=== PATIENT | male | born 1940 | race Caucasian/White ===

== ENCOUNTER 2024-09-15 08:05 | Day surgery (SDC) | payer MEDICARE, BC ==
[2024-09-08 15:24] LABS: BASOPHILS # (AUTO) 0.1 X10'3 (0-0.2); BASOPHILS % (AUTO) 0.6 % (0-1); EOSINOPHILS # (AUTO) 0.2 X10'3 (0-0.9); EOSINOPHILS % (AUTO) 2.6 % (0-6); HEMATOCRIT 44.7 % (42.0-52.0); HEMOGLOBIN 14.8 g/dl (14.0-17.9); LYMPHOCYTES # (AUTO) 1.7 X10'3 (1.1-4.8); LYMPHOCYTES % (AUTO) 18.9 % (21-51); MEAN CORPUSCULAR HGB CONC 33.1 g/dL (33.0-36.5); MEAN CORPUSCULAR VOLUME 81.3 FL (78-98); MEAN PLATELET VOLUME 9.3 FL (7.4-10.4); MONOCYTES # (AUTO) 0.9 X10'3 (0-0.9); MONOCYTES % (AUTO) 9.5 % (2-12); NEUTROPHILS # (AUTO) 6.2 X10'3 (1.8-7.7); NEUTROPHILS % (AUTO) 68.4 % (42-75); PLATELET COUNT 238 X10'3 (140-440); RED BLOOD COUNT 5.49 X10'6 (4.70-6.10); RED CELL DISTRIBUTION WIDTH 15.8 % (11.5-14.5); WHITE BLOOD COUNT 9.1 X10'3 (4.5-11.0)
[2024-09-08 15:38] LABS: ALANINE AMINOTRANSFERASE 18 U/L (12-78); ALBUMIN 3.4 G/DL (3.4-5.0); ALKALINE PHOSPHATASE 50 IU/L (46-116); ANION GAP 6 (8-16); ASPARTATE AMINO TRANSFERASE 21 U/L (10-37); BILIRUBIN,TOTAL 0.9 MG/DL (0.1-1.0); BLOOD UREA NITROGEN 14 MG/DL (7-18); BUN/CREATININE RATIO 9.7 (10.0-20.0); CALCIUM 8.5 MG/DL (8.5-10.1); CHLORIDE 108 MMOL/L (99-107); CREATININE 1.44 MG/DL (0.60-1.10); GLUCOSE 121 MG/DL (70-104); POTASSIUM 4.1 MMOL/L (3.5-5.1); SODIUM 143 MMOL/L (135-145); TOTAL CARBON DIOXIDE 29.3 MMOL/L (24-32); TOTAL PROTEIN 6.8 G/DL (6.4-8.2); eGFR 47 ML/MIN
[~2024-09-15] VITALS: Ht 190.5 cm; Wt 95.3 kg
[2024-09-15] VITALS (13 sets, daily range): BP systolic 133–162; BP diastolic 77–93; PULSE 52–60; RESP 9–16; TEMP 97.1; O2SAT 96–100
[2024-09-15] MEDS: ceFAZolin 2gm in dextrose, iso 50 ML IV ONE (05:30)
[~2024-09-15 08:05] MED LIST: ATOR-2 PO; EZET10TA48 PO; FENO134C21 PO; FLO0.4C PO; LEVO50TA PO
[2024-09-15] MEDS: CefTRIAXone 2gm/D5W 50ml BAG 50 ML IV ONE (09:01)
[2024-09-15] MEDS: famotidine 20mg tablet PO ONE (09:01)
[2024-09-15] MEDS: ringers solution, lacted 1,000 ML IV SCH (09:01)
[2024-09-15] MEDS ORDERED: sevoflurane 250ml liquid IH ONE (09:50)
[2024-09-15] MEDS ORDERED: fentaNYL/PF 50MCG/1 ML 2ML syringe ONE (10:00)
[2024-09-15] MEDS ORDERED: midazolam 1 mg/ML 2ml injection ONE (10:08)
[2024-09-15] MEDS ORDERED: ondansetron/PF 4mg/2ml inj ONE (10:14)
[2024-09-15] MEDS ORDERED: LIDOcaine 2% (20mg/ml) 5ml vial ONE (10:14)
[2024-09-15] MEDS ORDERED: dexamethasone sod phosphate 4mg/ml inj. ONE (10:14)
[2024-09-15] MEDS ORDERED: propofol inj 20 ML IV ONE (10:14)
[2024-09-15] MEDS ORDERED: hydrALAZINE 20mg/ml inj. IV PRN (11:35)
[2024-09-15] MEDS ORDERED: morphine 2 MG/ML inj. syringe IV PRN (11:35)
[2024-09-15] MEDS ORDERED: proCHLORperazine 10 MG/2 ml inj IV PRN (11:35)
[2024-09-15] MEDS ORDERED: ondansetron/PF 4mg/2ml inj IV PRN (11:35)
[2024-09-15] MEDS ORDERED: ringers solution, lacted 1,000 ML IV SCH (11:35)
[2024-09-15] MEDS ORDERED: labetalol 20mg/4ml (5mg/ml) syringe IV PRN (11:35)
[2024-09-15] MEDS ORDERED: acetaminophen 1,000mg/100ml IV 100 ML IV ONE (11:35)
[2024-09-15] MEDS ORDERED: morphine 4 MG/ML inj SYRINge IV PRN (11:35)
[2024-09-15] MEDS ORDERED: meperidine/PF 25mg/ml syringe IV PRN ×3 (11:35)
== END 2024-09-15 12:55 | disposition home or self-care (01) ==
LOC: PAS 08:05
PROVIDERS: ATTEND Urology
DX: N40.1 Benign prostatic hyperplasia with lower urinary tract symptoms (principal); R33.8 Other retention of urine; I12.9 Hypertensive chronic kidney disease with stage 1 through stage 4 chronic kidney disease, or unspecified chronic kidney disease; N18.30 Chronic kidney disease, stage 3 unspecified; E03.9 Hypothyroidism, unspecified; E78.5 Hyperlipidemia, unspecified; Z79.899 Other long term (current) drug therapy; Z98.890 Other specified postprocedural states
CPT/HCPCS: 36415; 52630; 80053; 82948; 85025; A4346; A4355; A4618; J0690; J0696; J1100; J2003; J2250; J2405; J2704; J3010; J7030; J7120; Z7506; Z7508; Z7512; Z7610